=== PATIENT | male | born 1995 | race African-American/Black ===

== ENCOUNTER 2017-07-29 10:33 | Emergency (ER) | payer MEDICAID ==
[~2017-07-29] VITALS: Ht 180.3 cm; Wt 106.1 kg
[2017-07-29 10:38] VITALS: BP 138/83; Ht 180.3 cm; Wt 106.1 kg
== END 2017-07-29 13:25 | disposition home or self-care (01) ==
LOC: ED 10:33
DX: J98.01 Acute bronchospasm (principal); R07.89 Other chest pain; F17.210 Nicotine dependence, cigarettes, uncomplicated; R11.10 Vomiting, unspecified
CPT/HCPCS: J2930; J7613; J7644